=== PATIENT | male | born 1975 | race Caucasian/White ===

== ENCOUNTER 2024-03-26 15:14 | Emergency (ER) | payer OTHER, MEDICAID ==
[2024-03-26] MEDS: Tetracaine HCl/PF 0.5% 4 ML Bottle EYEBOTH ONE (15:22)
[2024-03-26] MEDS: Fluorescein 1 MG Ophth Strip EYEBOTH ONE (15:23)
[2024-03-26] MEDS: Erythromycin Base 0.5% Ophth Oint 1 GM Tube EYERT ONE (16:29)
[2024-03-26 16:30] VITALS: BP 145/100; PULSE 80
== END 2024-03-26 16:31 | disposition home or self-care (01) ==
LOC: MW.ED 15:14
DX: T15.01XA Foreign body in cornea, right eye, initial encounter (principal); W20.8XXA Other cause of strike by thrown, projected or falling object, initial encounter
CPT/HCPCS: 99283; A9270; J3490